=== PATIENT | female | born 1980 | race Hispanic/Latino ===

== ENCOUNTER 2017-03-04 13:53 | Emergency (ER) | payer MEDICAID ==
[2017-03-04 14:37] VITALS: BMI 23.1
--- NOTE | 2017-03-04 14:40 | ED PDOC ---
Arrival/HPI - General Chief Complaint: Female Genitourinary Time Seen by Provider: 03/04/17 14:13 Historian: Patient - History of Present Illness Narrative History of Present Illness (Text): 03/04/17 14:15 A 36 year old female, whose past medical history includes UTI, presents to the emergency department complaining of hematuria for about a week. Patient reports urinary urgencies and lower back pain. Patient notes dizziness and heart palpitations, but denies dysuria or any other complaints at this time. Patient's LMP was February 16. ASPHALT DAUBER: Dr. Lake ([place]) PMD: Dr. Lujan Time/Duration: > week Symptom Onset: Sudden Symptom Course: Unchanged Activities at Onset: Rest Context: Home Associated Symptoms (Text): urinary urgencies and lower back pain Past Medical History - Provider Review Nursing Documentation Reviewed: Yes - Infectious Disease Hx of Infectious Diseases: None - Tetanus Immunization Tetanus Immunization: Unknown - Cardiac Hx Cardiac Disorders: No Hx Angina: No Hx Cardiac Arrhythmia: No Hx Circulatory Problems: No Hx Congestive Heart Failure: No Hx Heart Murmur: No Hx Heart Transplant: No Hx Hypertension: No Hx Internal Defibrillator: No Hx Mitral Valve Prolapse: No Hx Pacemaker: No Hx Peripheral Edema: No Hx Peripheral Vascular Disease: No - Pulmonary Hx Respiratory Disorders: No Hx Asthma: No Hx Bronchitis: Yes Hx Chronic Obstructive Pulmonary Disease (COPD): No Hx Emphysema: No Hx Pneumonia: Yes Hx Respiratory Aspiration: No Hx Respiratory Tract Infection: No Hx Sleep Apnea: No Hx Tuberculosis: No - Neurological Hx Neurological Disorder: No Hx Alzheimer's Disease: No HX Cerebrovascular Accident: No Hx Dementia: No Hx Dizziness: No Hx Meningitis: No Hx Migraine: No Hx Parkinson's Disease: No Hx Seizures: No Hx Transient Ischemic Attacks (TIA): No - HEENT Hx HEENT Disorder: No Hx Blind: No Hx Cataracts: No Hx Deafness: No Hx Difficulty Chewing: No Hx Epistaxis: No Hx Glaucoma: No Hx Macular Degeneration: No - Renal Hx Renal Disorder: No Hx Dialysis: No Hx Kidney Stones: No Hx Neurogenic Bladder: No Hx Pyelonephritis: No Hx Renal Cancer: No Hx Renal Failure: No - Endocrine/Metabolic Hx Endocrine Disorders: No Hx Adrenal Cancer: No Hx Diabetes Insipidus: No Hx Diabetes Mellitus Type 1: No Hx Diabetes Mellitus Type 2: No Hx Hyperthyroidism: No Hx Hypothyroidism: No Hx Systemic Lupus Erythematosus: No - Hematological/Oncological Hx Blood Disorders: No Hx AIDS: No Hx Anemia: No Hx Cancer: No Hx Chemotherapy: No Hx Cirrhosis: No Hx Hemophilia: No Hx Hepatitis A: No Hx Hepatitis B: No Hx Hepatitis C: No Hx Metastasis: No Hx Shingles: No Hx Sickle Cell Disease: No Hx Unexplained Bleeding: No - Integumentary Hx Dermatological Disorder: No Hx Basal Cell Carcinoma: No Hx Eczema: No Hx Melanoma: No Hx Psoriasis: No Hx Squamous Cell Carcinoma: No - Musculoskeletal/Rheumatological Hx Falls: No - Gastrointestinal Hx Gastrointestinal Disorders: No Hx Colostomy: No Hx Crohn's Disease: No Hx Diverticulitis: No Hx Gall Bladder Disease: No Hx Gastroesophageal Reflux: No Hx Gastrointestinal Ulcer: No Hx Ileostomy: No Hx Liver Failure: No Hx Pancreatitis: No HX Swallowing Problems: No - Genitourinary/Gynecological Hx Genitourinary Disorders: No Hx Hematuria: No Hx Incontinence: No Hx Prostate Problems: No Hx Sexually Transmitted Diseases: No Hx Urinary Tract Infection: No - Psychiatric Hx Psychophysiologic Disorder: No Hx Anxiety: No Hx Bipolar Disorder: No Hx Depression: No Hx Emotional Abuse: No Hx Hallucinations: No Hx Panic Disorder: No Hx Post Traumatic Stress Disorder: No Hx Psychosis: No Hx Physical Abuse: No Hx Schizophrenia: No Hx Sexual Abuse: No Hx Substance Use: No - Surgical History Hx Amputation: No Hx Appendectomy: No Hx Cardiac Catheterization: No Hx Cholecystectomy: No Hx Coronary Stent: No Hx Gastric Bypass Surgery: No Hx Hysterectomy: No Hx Joint Replacement: No Hx Kidney Transplant: No Hx Liver Transplant: No Hx Mastectomy: No Hx Musculoskeletal Surgery: No Hx Open Heart Surgery: No Hx Orthopedic Surgery: No Hx Splenectomy: No Hx Valve Replacement: No Other/Comment: cyst removal to head - Anesthesia Hx Anesthesia: No - Suicidal Assessment Feels Threatened In Home Enviroment: No Family/Social History - Physician Review Nursing Documentation Reviewed: Yes Family/Social History: No Known Family HX Smoking Status: Never Smoked Hx Alcohol Use: No Hx Substance Use: No Hx Substance Use Treatment: No Allergies/Home Meds Allergies/Adverse Reactions: Allergies No Known Allergies Allergy (Verified 03/04/17 14:08) Home Medications: Home Meds Medication Instructions Recorded Confirmed No Known Home Med [No Known Home 01/22/15 03/04/17 Med] Review of Systems - Physician Review All systems were reviewed & negative as marked: Yes - Review of Systems Cardiovascular: Palpitations Genitourinary Female: Hematuria, Other (urinary urgencies). absent: Dysuria Musculoskeletal: Back Pain (lower) Neurological: Dizziness Physical Exam Vital Signs Reviewed: Yes Vital Signs Temp Pulse Resp BP Pulse Ox 03/04/17 20:00 88 18 127/70 98 03/04/17 18:00 88 18 129/88 98 03/04/17 16:00 98.6 F 97 H 17 117/78 98 03/04/17 14:10 98.2 F 101 H 19 119/82 99 Temperature: Afebrile Blood Pressure: Normal Pulse: Tachycardic Respiratory Rate: Normal Appearance: Positive for: Well-Appearing, Non-Toxic, Comfortable Pain Distress: None Mental Status: Positive for: Alert and Oriented X 3 - Systems Exam Head: Present: Atraumatic, Normocephalic Pupils: Present: PERRL Extroacular Muscles: Present: EOMI Conjunctiva: Present: Normal Mouth: Present: Moist Mucous Membranes Neck: Present: Normal Range of Motion Respiratory/Chest: Present: Clear to Auscultation, Good Air Exchange. No: Respiratory Distress, Accessory Muscle Use Cardiovascular: Present: Tachycardic Abdomen: Present: Normal Bowel Sounds. No: Tenderness, Distention, Peritoneal Signs Genitourinary/Pelvic Exam: No: Vaginal Bleeding Back: Present: Other (mild L lower lumbar back pain on palpation) Upper Extremity: Present: Normal Inspection. No: Cyanosis, Edema Lower Extremity: Present: Normal Inspection. No: Edema Neurological: Present: GCS=15, CN II-XII Intact, Speech Normal Skin: Present: Warm, Dry, Normal Color. No: Rashes Psychiatric: Present: Alert, Oriented x 3, Normal Concentration, Anxious (mildly ) Medical Decision Making ED Course and Treatment: 03/04/17 14:15 Impression: A 36 year old female with hematuria. Differential Diagnosis included but are not limited to: UTI vs. renal colic Plan: -- CT abd/pelvis -- US renal -- labs -- Urinalysis -- Reassess and disposition Prior Visits: Notes and results from previous visits were reviewed. Patient last reported to the emergency department on 07/10/16 for evaluation of spitting up blood. Patient was discharged and advised to follow up with PMD. Progress Notes: CT abd/pelvis- Creator : Higinio Koo MD 03/04/2017 17:00 IMPRESSION: No evidence of urinary calculus or urinary tract obstruction. 1.6 cm right upper pole low-density mass, likely cyst. No other abnormality identified. US Retroperitoneal Complete, Renal FINDINGS: Right kidney: Contains a 2.5 x 1.6 x 1.8 cm lesion, which has features most compatible with a mildly complex cyst. It is mostly anechoic, but has echoes within it posteriorly, which do not demonstrate flow/vascularity on color imaging. Its margins are well-defined. Right kidney is otherwise within normal limits in appearance. Measures 12.4 cm in length. No evidence of hydronephrosis. Left kidney: Within normal limits in appearance. Measures 11.2 cm in length. No evidence of hydronephrosis. Bladder: Not imaged. IMPRESSION: No evidence of hydronephrosis or other acute sonographic abnormality of the kidneys. 2.5 cm mildly complex cystic lesion in the right kidney. Given the history of hematuria, recommend better characterization of this lesion, such as with renal MRI, on a nonemergent basis. See above for remaining findings. Dictated and Authenticated by: Dinora Rosario MD 03/04/2017 7:30 PM Eastern Time ([place] & [place]) On reevaluation, patient denies any pain or discomfort. US abnormal findings reviewed with patient. 2 urine specimens reveal no microscopic blood. Hemoglobin was 13, recommended Urology and Renal follow up for abnormal US. 03/04/17 20:[address] Sushil Torres, Urologist, who will follow up with patient's symptoms this week. On re-evaluation, patient feels better and is in no acute distress. I have discussed the results and plan with the patient, who expresses understanding. Patient in agreement with plan to be discharged home. Patient is stable for discharge. Patient was instructed to follow up with physician or return if symptoms worsen or new concerning symptoms arise. - Lab Interpretations Microbiology Results: Microbiology Results 03/04/17 14:30 Urine Urine Culture - Final No Growth (<1,000 CFU/ML) Lab Results: 03/04/17 14:40 03/04/17 14:40 Lab Results 03/04/17 16:40: Urine Color Yellow, Urine Appearance Clear, Urine pH 7.0, Ur Specific [place] 1.020, Urine Protein Negative, Urine Glucose (UA) Negative, Urine Ketones Negative, Urine Blood Negative, Urine Nitrate Negative, Urine Bilirubin Negative, Urine Urobilinogen 0.2, Ur Leukocyte Esterase Negative 03/04/17 14:40: Sodium 139, Potassium 3.8, Chloride 106, Carbon Dioxide 26, Anion Gap 11, BUN 9, Creatinine 0.8, Est GFR ( Amer) > 60, Est GFR (Non- Af Amer) > 60, Random Glucose 113 H, Calcium 9.0, Total Bilirubin 0.9, AST 21, ALT 19, Alkaline Phosphatase 36 L, Total Protein 7.3, Albumin 4.1, Globulin 3.2 , Albumin/Globulin Ratio 1.3 03/04/17 14:40: PT 11.5, INR 1.06, APTT 25.7 03/04/17 14:40: WBC 5.9 D, RBC 4.49, Hgb 13.0, Hct 39.9, MCV 88.9, MCH 29.0, MCHC 32.6, RDW 13.2, Plt Count 251, MPV 12.1 H, Gran % 72.2 H, Lymph % (Auto) 17.8 L, Patrick % (Auto) 9.5 H, Eos % (Auto) 0.3 L, Baso % (Auto) 0.2, Gran # 4.26 , Lymph # 1.1 L, Patrick # 0.6, Eos # 0.0, Baso # 0.01 03/04/17 14:30: Urine Color Yellow, Urine Appearance Clear, Urine pH 6.0, Ur Specific [place] 1.015, Urine Protein Negative, Urine Glucose (UA) Negative, Urine Ketones Negative, Urine Blood Negative, Urine Nitrate Negative, Urine Bilirubin Negative, Urine Urobilinogen 0.2, Ur Leukocyte Esterase Negative, Urine HCG, Qual Negative I have reviewed the lab results: Yes - RAD Interpretation Radiology Orders: 03/04/17 14:34 ABD & PELVIS W/O PO OR IV CONT [CT] Stat 03/04/17 17:02 RENAL [US] Stat - Scribe Statement The provider has reviewed the documentation as recorded by the Sophia Holloway Provider Scribe Attestation: All medical record entries made by the Scribe were at my direction and personally dictated by me. I have reviewed the chart and agree that the record accurately reflects my personal performance of the history, physical exam, medical decision making, and the department course for this patient. I have also personally directed, reviewed, and agree with the discharge instructions and disposition. Disposition/Present on Arrival - Present on Arrival Any Indicators Present on Arrival: No History of DVT/PE: No History of Uncontrolled Diabetes: No Urinary Catheter: No History of Decub. Ulcer: No History Surgical Site Infection Following: None - Disposition Have Diagnosis and Disposition been Completed?: Yes Diagnosis: Renal cyst, Urine discoloration Disposition: HOME/ ROUTINE Disposition Time: 19:30 Patient Plan: Discharge Condition: GOOD Discharge Instructions (ExitCare): Kidney Cyst (ED) Additional Instructions: For any fevers, any difficulty urinating, any abdominal pain, any back pain, any bloody or dark stool, any chest pain or shortness of breath, any numbness or weakness, any persistent or worsening of symptoms, get rechecked. Your case was discussed with Dr. Sushil Torres please call him after ER discharge to arrange appointment for this week. Referrals: Sushil Torres MD [Staff Provider] - Follow up with primary
[2017-03-04 15:09] LABS: ADD MANUAL DIFF? NO
[2017-03-04 15:28] LABS: INR 1.06 (0.93-1.08); PARTIAL THROMBOPLASTIN TIME 25.7 Seconds (23.7-30.8)
[2017-03-04 15:31] LABS: BASO # 0.01 K/mm3 (0.0-2.0); BASO % 0.2 % (0.0-3.0); EOS % 0.3 % (1.5-5.0); GRAN # 4.26 (1.4-6.5); GRAN % 72.2 % (50.0-68.0); HEMATOCRIT 39.9 % (36.0-48.0); LYMPH # 1.1 (1.2-3.4); LYMPH % 17.8 % (22.0-35.0); MEAN CELL VOLUME 88.9 fL (80.0-105.0); MEAN CORPUSCULAR HGB CONC 32.6 g/dl (31.0-37.0); MEAN PLATELET VOLUME 12.1 fl (7.0-11.0); MONO # 0.6 (0.1-0.6); MONO % 9.5 % (1.0-6.0); PLATELET COUNT 251 10^3/uL (120.0-450.0); RED CELL DISTRIBUTION WIDTH 13.2 % (11.5-14.5); WHITE BLOOD COUNT 5.9 10^3/ul (4.5-11.0)
[2017-03-04 15:32] LABS: URINE BILIRUBIN NEGATIVE (NEGATIVE); URINE BLOOD NEGATIVE (NEGATIVE); URINE GLUCOSE (UA) NEGATIVE (NEGATIVE); URINE KETONE NEGATIVE (NEGATIVE); URINE LEUKOCYTE ESTERASE NEGATIVE Leu/uL (NEGATIVE); URINE PROTEIN NEGATIVE mg/dL (<30 mg/dL); URINE UROBILINOGEN 0.2 E.U./dL (<1 E.U./dL)
[2017-03-04 15:40] LABS: URINE APPEARANCE CLEAR (CLEAR); URINE COLOR YELLOW (YELLOW)
[2017-03-04 15:45] LABS: ALB/GLOB RATIO 1.3 (1.1-1.8); ALKALINE PHOSPHATASE 36 U/L (38-133); ALT/SGPT 19 U/L (7-56); AST/SGOT 21 U/L (15-39); BILIRUBIN,TOTAL 0.9 mg/dL (0.2-1.3); BLOOD UREA NITROGEN 9 mg/dL (7-21); CARBON DIOXIDE 26 mmol/L (21-33); CHLORIDE 106 mmol/L (98-107); GFR AFRICAN-AMERICAN > 60; GLUCOSE,RANDOM 113 mg/dL (70-110); POTASSIUM 3.8 mmol/L (3.6-5.0); SODIUM 139 mmol/L (132-148); TOTAL PROTEIN 7.3 g/dL (5.8-8.3)
--- NOTE | 2017-03-04 16:58 | CT ---
PROCEDURE: CT Abdomen and Pelvis without intravenous contrast HISTORY: back pain, hematuria COMPARISON: None. TECHNIQUE: Without contrast.. Contrast Dose: 0 Radiation dose: Total exam DLP = 420.09 mGy-cm. This CT exam was performed using one or more of the following dose reduction techniques: Automated exposure control, adjustment of the mA and/or kV according to patient size, and/or use of iterative reconstruction technique. FINDINGS: LOWER THORAX: Unremarkable. LIVER: Unremarkable. No gross lesion or ductal dilatation. GALLBLADDER AND BILE DUCTS: Unremarkable. PANCREAS: Unremarkable. No gross lesion or ductal dilatation. SPLEEN: Unremarkable. ADRENALS: Unremarkable. No mass. KIDNEYS AND URETERS: 1.6 cm rounded low-attenuation lesion upper pole right kidney, 17 Hounsfield units. Likely cyst. No left renal mass. No calculus or hydronephrosis. VASCULATURE: Unremarkable. No aortic aneurysm. BOWEL: Unremarkable. No obstruction. No gross mural thickening. APPENDIX: Unremarkable. Normal appendix. PERITONEUM: Unremarkable. No free fluid. No free air. LYMPH NODES: Unremarkable. No enlarged lymph nodes. BLADDER: Unremarkable. REPRODUCTIVE: Normal uterus BONES: No acute fracture. OTHER FINDINGS: None. IMPRESSION: No evidence of urinary calculus or urinary tract obstruction. 1.6 cm right upper pole low-density mass, likely cyst. No other abnormality identified.
[2017-03-04 17:04] VITALS: TEMP 98.6; O2SAT 98
[2017-03-04 17:18] LABS: URINE BILIRUBIN NEGATIVE (NEGATIVE); URINE BLOOD NEGATIVE (NEGATIVE); URINE GLUCOSE (UA) NEGATIVE (NEGATIVE); URINE KETONE NEGATIVE (NEGATIVE); URINE LEUKOCYTE ESTERASE NEGATIVE Leu/uL (NEGATIVE); URINE PROTEIN NEGATIVE mg/dL (<30 mg/dL); URINE UROBILINOGEN 0.2 E.U./dL (<1 E.U./dL)
[2017-03-04 17:23] LABS: URINE APPEARANCE CLEAR (CLEAR); URINE COLOR YELLOW (YELLOW)
--- NOTE | 2017-03-04 19:30 | US ---
EXAM: US Retroperitoneal Complete, Renal CLINICAL HISTORY: 36 years old, female; Pain; Other: Back pain; Additional info: Hematuria, ? mass TECHNIQUE: Real-time ultrasound of the retroperitoneum (complete) with image documentation. EXAM DATE/TIME: 03/04/2017 5:02 PM COMPARISON: Abdominal CT done earlier on the same day, at 03/04/2017 4:07 PM FINDINGS: Right kidney: Contains a 2.5 x 1.6 x 1.8 cm lesion, which has features most compatible with a mildly complex cyst. It is mostly anechoic, but has echoes within it posteriorly, which do not demonstrate flow/vascularity on color imaging. Its margins are well-defined. Right kidney is otherwise within normal limits in appearance. Measures 12.4 cm in length. No evidence of hydronephrosis. Left kidney: Within normal limits in appearance. Measures 11.2 cm in length. No evidence of hydronephrosis. Bladder: Not imaged. IMPRESSION: No evidence of hydronephrosis or other acute sonographic abnormality of the kidneys. 2.5 cm mildly complex cystic lesion in the right kidney. Given the history of hematuria, recommend better characterization of this lesion, such as with renal MRI, on a nonemergent basis. See above for remaining findings.
[2017-03-04 20:17] VITALS: PULSE 88; RESP 18
[2017-03-04 20:18] VITALS: BP 127/70
== END 2017-03-04 20:18 | disposition home or self-care (01) ==
LOC: ED 13:53
DX: N28.1 Cyst of kidney, acquired (principal)